=== PATIENT | female | born 2000 | race African-American/Black ===

== ENCOUNTER 2019-11-19 09:57 | Emergency (ER) | payer OTHER ==
[~2019-11-19] VITALS: Ht 177.8 cm; Wt 55.2 kg
[2019-11-19 10:01] VITALS: BP 99/58
--- NOTE | 2019-11-19 10:08 | NUR ---
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 DANIEL
[2019-11-19] MEDS ORDERED: ACETAMINOPHEN 325 MG TABLET PO ONE (10:30)
[2019-11-19] MEDS ORDERED: ACETAMINOPHEN 325 MG TABLET ONE (10:39)
== END 2019-11-19 11:33 | disposition home or self-care (01) ==
LOC: ED 11:31
DX: S93.504A Unspecified sprain of right lesser toe(s), initial encounter (principal); X58.XXXA Exposure to other specified factors, initial encounter; Y93.89 Activity, other specified; Y92.89 Other specified places as the place of occurrence of the external cause; Y99.8 Other external cause status
CPT/HCPCS: 99283

== ENCOUNTER 2020-11-20 16:21 | Inpatient (IN) | payer OTHER ==
[~2020-11-20] VITALS: Ht 177.8 cm; Wt 58.0 kg
--- NOTE | 2020-11-20 16:28 | NUR ---
CARLINE LUQUE-HAD WITTNESSED SZ AT WORK, WENT TO [facility]. AT [facility] THERE WERE ADDITIONAL SZ WITTNESSED. PT PIV STARTED THERE, GIVEN ATIVAN 1 MG IVX2, AND KEPPRA 1000 MG IV. NO SZ ACTIVITY SINCE THEN. EKG COMPLETED, CONNECTED TO MONITOR, SZ PADS IN PLACE AND SUCTION AVAILABLE.
--- NOTE | 2020-11-20 16:45 | NUR ---
PT UP TO RESTROOM AND BACK W/O INCIDENT. UNSTEADY GAIT. NADN, CALL LIGHT W/IN REACH.
[2020-11-20] MEDS ORDERED: SODIUM CHLORIDE FLUSH 10ML SYR IVF PRN (17:30)
--- NOTE | 2020-11-20 17:32 | NUR ---
PT RESTING IN [facility], MOM BEDSIDE. DANIEL. CALL LIGHT W/IN REACH.
--- NOTE | 2020-11-20 17:35 | NUR ---
CALLED 173, LEFT ON HOLD.
[2020-11-20] MEDS: SODIUM CHLORIDE 0.9% 1,000 ML IV SCH (18:00)
[2020-11-20] MEDS ORDERED: ACETAMINOPHEN 325 MG TABLET PO PRN (18:00)
[2020-11-20] MEDS ORDERED: BISACODYL 10 MG SUPP PR PRN (18:00)
[2020-11-20] MEDS ORDERED: POLYETHYLENE GLYCOL 17 GM PACKET PO PRN (18:00)
[2020-11-20] MEDS ORDERED: ONDANSETRON ODT 4 MG PO PRN (18:00)
--- NOTE | 2020-11-20 18:12 | NUR ---
STAFF WALKING BY CALLED AND SAID PT WAS ON FLOOR. STAFF WENT TO PT, WHO WAS ON SIDE OF GURNEY FOUND ON FLOOR. PT WAS SAT UP, SHE SAID SHE WAS TRYING TO GET PULSE OX OFF AND LEAVE ROOM. WHEN ASKED WHERE SHE IS, SHE STATED [place]. IT IS UNKNOWN IF PT HIT HER HEAD. PT WAS PLACED ONTO GURNEY, VS 99% RA, R 16, 108/78, 73 HR. DETACKER AWARE OF FALL, MD CAME BEDSIDE. NO ORDER.
--- NOTE | 2020-11-20 18:30 | NUR ---
[facility]. at this time pt denies any injuries, just states she is hungry and wants to go home. 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
--- NOTE | 2020-11-20 18:36 | NUR ---
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
--- NOTE | 2020-11-20 18:50 | NUR ---
VICKAR REPORT TO WIN
--- NOTE | 2020-11-20 19:20 | NUR ---
PT PROVIDED A SANDWICH, WATER AND CHIP AT PT REQUEST. PT ON MONITOR WITH SITTER AT PT SIDE, PT ON MONITOR WITH VSS. PT DENIED ANY CURRENT WANTS OR NEEDS.
[2020-11-20 20:53] VITALS: BP 99/64
[2020-11-21 01:05] VITALS: BP 122/70
[2020-11-21] MEDS: LORazepam 2 MG/ML, 1ML IVPush PRN ×3 (05:13→13:24)
[2020-11-21 05:16] LABS: BASOPHILS % (AUTO) 1 % (0-1); EOSINOPHILS % (AUTO) 1 % (1-7); LYMPHOCYTES % (AUTO) 37 % (22-44); MEAN CORPUSCULAR HEMOGLOBIN 26.8 pg (27.0-34.8); MEAN CORPUSCULAR HGB CONC 32.8 g/dL (32.4-35.8); MEAN PLATELET VOLUME 7.5 fL (7.4-10.4); MONOCYTES % (AUTO) 6 % (2-9); NEUTROPHILS % (AUTO) 55 % (42-75); PLATELET COUNT 297 x10^3/uL (130-400); RED BLOOD COUNT 4.36 x10^6/uL (3.82-5.3); RED CELL DISTRIBUTION WIDTH 14.7 % (9.6-15.2)
[2020-11-21 05:17] VITALS: BP 101/65
[2020-11-21 05:21] LABS: ANION GAP 4 mmol/L (5-15); CALCIUM 9.3 mg/dL (8.5-10.1); CHLORIDE 110 mmol/L (98-107); CREATININE 0.61 mg/dL (0.55-1.02)
[2020-11-21] MEDS: SODIUM CHLORIDE 0.9% 1,000 ML IV SCH (05:30)
[2020-11-21 05:43] LABS: MD NO
[2020-11-21] MEDS ORDERED: LEVETIRACETAM 500 MG TABLET ONE (05:47)
[2020-11-21 07:13] VITALS: BP 100/65
[2020-11-21] MEDS ORDERED: LEVETIRACETAM 500 MG TABLET PO SCH (09:00)
[2020-11-21] MEDS ORDERED: SENNA/DOCUSATE TABLET PO SCH (09:00)
[2020-11-21] MEDS ORDERED: GADOTERATE 7.5 MMOL/15ML SYR ONE (11:05)
[2020-11-21 16:09] VITALS: BP 91/55
[2020-11-21] MEDS ORDERED: LAMOTRIGINE 25 MG TABLET PO SCH (16:30)
[2020-11-21] MEDS ORDERED: HYDR-826 PO (17:54)
[2020-11-21] MEDS ORDERED: hydrOXyzine 50MG TABLET PO PRN (18:00)
== END 2020-11-21 19:14 | disposition home or self-care (01) | DRG 101 ==
LOC: ED 17:31 → EDIP 17:43 → 4WST 20:40
PROVIDERS: ADMIT Internal Medicine; ATTEND Internal Medicine
DX: G40.909 Epilepsy, unspecified, not intractable, without status epilepticus (principal); F41.9 Anxiety disorder, unspecified; F12.90 Cannabis use, unspecified, uncomplicated
CPT/HCPCS: 36415; 70553; 80048; 82962; 84703; 85025; 93005; 95816; G0378; A9575; J2060; J7030

== ENCOUNTER 2021-01-06 18:28 | Emergency (ER) | payer OTHER ==
[~2021-01-06] VITALS: Ht 177.8 cm; Wt 54.7 kg
[~2021-01-06 18:28] MED LIST: HYDR-826 PO
[2021-01-06 18:32] VITALS: BP 103/66
--- NOTE | 2021-01-06 19:17 | NUR ---
PT AMBULATORY TO ROOM 6 W/ L EAR PAIN X 4-5 DAYS. PT ALSO C/O COUGH X 1 WK. WAS TESTED FOR COVID ON CAME BACK NEGATIVE. [facility]
== END 2021-01-06 19:56 | disposition home or self-care (01) ==
LOC: ED 19:50
DX: H92.02 Otalgia, left ear (principal); R06.02 Shortness of breath
CPT/HCPCS: 99281

== ENCOUNTER 2021-01-17 07:53 | Emergency (ER) | payer OTHER ==
[~2021-01-17] VITALS: Ht 177.8 cm; Wt 54.1 kg
[2021-01-17] MEDS ORDERED: FAMOTIDINE 20 MG TABLET ONE (08:27)
[2021-01-17] MEDS ORDERED: FAMOTIDINE 20 MG TABLET PO ONE (08:30)
--- NOTE | 2021-01-17 08:31 | NUR ---
PT RESTING IN [facility] AT THIS TIME; DANIEL. PT HAS CALL LIGHT WITHIN REACH. PT EDUCATED ON ER PROCESS AND POC AND VERBALIZES UNDERSTANDING. PT MEDICATED PER AUG.
[2021-01-17 08:47] VITALS: BP 112/74
--- NOTE | 2021-01-17 08:47 | NUR ---
PT D/C WITH D/C SUMMARY AND MEDICATION INFORMATION. PT DENIES ANY OTHER NEEDS PERTAINING TO THIS VISIT AND AMBULATES TO REGISTRATION DESK WITH STEADY GAIT FOR D/C HOME.
== END 2021-01-17 08:52 | disposition home or self-care (01) ==
LOC: ED 08:43
DX: T78.40XA Allergy, unspecified, initial encounter (principal); R21 Rash and other nonspecific skin eruption
CPT/HCPCS: 99283

== ENCOUNTER 2021-01-18 00:19 | Emergency (ER) | payer OTHER ==
[~2021-01-18] VITALS: Ht 165.1 cm; Wt 50.0 kg
[2021-01-18 00:25] VITALS: BP 109/81
--- NOTE | 2021-01-18 00:35 | NUR ---
PT BIB [facility] FOR "SEIZURES". PT WON'T ANSWER QUESTIONS AT THIS TIME, IS AWAKE LYING IN BED, AND ON CR MONITOR. PT AIRWAY INTACT, GOOD AERATION AND OXYGENATION. NO ACUTE DISTRESS. PT IS WITH HER BROTHER. PTS MOM HAS BEEN CALLED. MD TO BEDSIDE TO EVAL PT.
--- NOTE | 2021-01-18 00:51 | NUR ---
PT AWAKE AND ALERT, NO ACUTE DISTRESS. PT SITTING UP IN BED AND ASKED RN TO TELL THE DOCTOR THAT HER BACK IS VERY ITCHY. PT CONVERSING AND GETTING ON WITHOUT ISSUE AND NOT POST ICTAL AT THIS TIME. PT A&OX4. PTS MOM HAS ARRIVED AND TO BEDSIDE.
--- NOTE | 2021-01-18 01:05 | NUR ---
WALKED BY THE PTS ROOM, AND THE PT IS SITTING ON THE GURNEY WITH HER TOP COMPLETELY OFF, SHOWING HER BREASTS TO EVERYONE THAT WALKS BY, THE CURTAINS ARE NOT PULLED. WHEN ASKED WHY THE PT IS SITTING THEIR HALF NAKED, AND THE PT WAS ASKED TO COVER UP, THE PT LOOKS AND POINTS AT THE MOM, SAYING THE MOM TOLD HER TO TAKE OFF HER TOP. WHEN ASKED WHY, THE MOM SAYS BECAUSE SHE WANTS THE DOCTOR TO SEE THE PTS ITCHY BACK, BUT IT WAS REITERATED TO THE PTS MOM, THAT THE DOC WAS AWARE OF HER ITCHING BACK, AND THAT THE PT SHOULD NOT BE SITTING ON THE BED EXPOSED TO EVERYONE IN THE ER THEY WALK BY HER ROOM. THE AUDITOR TAX WAS ADVISED OF THIS SITUATION AND ASKED TO INTERVENE THE PTS MOTHER IS NOW SAYING SHE WILL COMPLAIN ABOUT THIS RN FOR BRINGING IT UP AND ASKING THE PT TO COVER UP.
== END 2021-01-18 01:34 | disposition left against medical advice (07) ==
LOC: ED 00:45
DX: R56.9 Unspecified convulsions (principal); Z72.9 Problem related to lifestyle, unspecified
CPT/HCPCS: 99283